=== PATIENT | female | born 1995 | race African-American/Black ===

== ENCOUNTER 2017-10-30 02:55 | Emergency (ER) | payer OTHER, SELFPAY ==
[2017-10-30] MEDS ORDERED: Ibuprofen 800 MG TAB ONE (03:22)
--- NOTE | 2017-10-30 08:57 | RAD ---
RIGHT WRIST 3 VIEWS: Date: 10/30/17 HISTORY: Trauma. Right wrist pain. FINDINGS/IMPRESSION: No fracture or dislocation is seen. If symptoms do not improve, a follow-up exam should be obtained in 7-10 days. POS: SHARRI
== END 2017-10-30 04:55 | disposition home or self-care (01) ==
LOC: ERS 02:55
DX: S50.11XA Contusion of right forearm, initial encounter (principal); W19.XXXA Unspecified fall, initial encounter

== ENCOUNTER 2018-05-25 16:38 | Emergency (ER) | payer SELFPAY ==
--- NOTE | 2018-05-25 17:58 | RAD ---
RADIOGRAPH RIGHT FOOT THREE VIEWS: History: 22-year-old female with traumatic right foot pain after fall. Comparison: None. FINDINGS: Visible only on the lateral view there is a small fragment abutting a small defect at the proximal do rsum of the navicular bone, involving the talonavicular joint surface, with minimal displacement. It is uncertain whether this is an acute fracture or chronic finding. The rest of the bones are normal. No dislocation. IMPRESSION: 1. Small osseous fragment associated with small osseous defect at the dorsum of the navicular bone. U ncertain whether this is an acute chip fracture or chronic. Recommend correlation with presence or ab sence of point tenderness in this particular location. 2. The rest of the foot is normal. POS: JIN
== END 2018-05-25 17:24 | disposition home or self-care (01) ==
LOC: ERS 16:38
DX: S92.251A Displaced fracture of navicular [scaphoid] of right foot, initial encounter for closed fracture (principal); X50.9XXA Other and unspecified overexertion or strenuous movements or postures, initial encounter

== ENCOUNTER 2018-07-19 18:52 | Emergency (ER) | payer OTHER, SELFPAY ==
[2018-07-19] MEDS ORDERED: Adacel (T-DAP) 0.5 ML SYRINGE ONE (19:12)
[2018-07-19] MEDS ORDERED: Bacitracin Zinc 1 Packet ONE (19:28)
--- NOTE | 2018-07-20 09:31 | RAD ---
TWO VIEWS OF THE RIGHT THIRD FINGER 07/19/18 COMPARISON: None. HISTORY: Laceration. FINDINGS: No fracture, dislocation, or radiopaque foreign body. There is soft tissue irregularity involving the volar aspect of the third finger distally, likely on the basis of laceration. IMPRESSION: No fracture/dislocation or radiopaque foreign body. POS: JULIANA
== END 2018-07-19 19:44 | disposition home or self-care (01) ==
LOC: ERS 18:52
DX: S61.212A Laceration without foreign body of right middle finger without damage to nail, initial encounter (principal); W25.XXXA Contact with sharp glass, initial encounter
CPT/HCPCS: 90471; 90715

== ENCOUNTER 2018-07-31 19:09 | Emergency (ER) | payer OTHER ==
[2018-07-31] MEDS ORDERED: Ketorolac Tromethamine 30 MG/ML VIAL ONE (19:31)
[2018-07-31] MEDS ORDERED: diphenhydrAMINE 50 MG/ML VIAL ONE (19:31)
[2018-07-31] MEDS ORDERED: Metoclopramide HCl 10 MG/2 ML VIAL ONE (19:31)
--- NOTE | 2018-07-31 19:46 | RAD ---
FFrontal and lateral imaging of the thoracic spine: 07/31/2018 COMPARISON: None HISTORY: Fall, trauma, pain FINDINGS: Thoracic pedicles appear intact on frontal imaging. Lateral imaging demonstrates normal una tebral body height and alignment. No displaced fracture. IMPRESSION: No acute findings.
--- NOTE | 2018-07-31 19:47 | RAD ---
F3 views of the lumbar spine: 07/31/2018 Comparison: None HISTORY: Fall, pain FINDINGS: Lumbar pedicles are intact. No fracture or dislocation. Lumbar vertebral body height and al ignment is normal. IMPRESSION: No acute findings.
--- NOTE | 2018-07-31 20:00 | CT ---
HEAD CT WITHOUT CONTRAST: 07/31/18 HISTORY: Fall. Hit back of head. Posttraumatic pain. COMPARISON: None. FINDINGS: No parenchymal hemorrhage. No extra-axial hematoma. No midline shift. Basilar cisterns are patent. Br ain volume, age appropriate. Cortical goldberg-white matter differentiation is preserved. No hydrocephalus. Adequate aeration of the sinuses and mastoid air cells. Calvarium is intact. IMPRESSION: No intracranial posttraumatic sequela. POS: PPP
--- NOTE | 2018-07-31 20:00 | CT ---
FCervical spine CT without contrast: 07/31/2018 COMPARISON: None HISTORY: Injury, trauma, pain TECHNIQUE: Axial CT imaging at 2.5 mm intervals through the cervical spine with coronal and sagittal reformatted imaging FINDINGS: The imaged lung apices are unremarkable. The craniocervical junction, the atlantoaxial interspace, and the cervicothoracic junction demonstrat e no acute findings. There is straightening of the normal cervical lordosis. No prevertebral soft tis kyle swelling. Cervical vertebral body height and alignment appears normal. Occipital condyles, dens, and C1 ring are intact. No acute fracture or dislocation. IMPRESSION: No acute findings.
[2018-07-31] MEDS ORDERED: Ketorolac Tromethamine 60 MG/2 ML VIAL ONE (20:19)
== END 2018-07-31 20:35 | disposition home or self-care (01) ==
LOC: ERS 19:09
DX: S09.90XA Unspecified injury of head, initial encounter (principal); S33.5XXA Sprain of ligaments of lumbar spine, initial encounter; S23.3XXA Sprain of ligaments of thoracic spine, initial encounter; W01.10XA Fall on same level from slipping, tripping and stumbling with subsequent striking against unspecified object, initial encounter
CPT/HCPCS: 70450; 72070; 72100; 72125; 96372; J1200; J1885; J2765

== ENCOUNTER 2019-01-27 20:04 | Emergency (ER) | payer OTHER, SELFPAY ==
[2019-01-27] MEDS ORDERED: Metoclopramide HCl 10 MG/2 ML VIAL ONE (22:01)
[2019-01-27] MEDS ORDERED: diphenhydrAMINE 50 MG/ML VIAL ONE (22:01)
[2019-01-27] MEDS ORDERED: Ketorolac Tromethamine 30 MG/ML VIAL ONE (22:01)
== END 2019-01-28 00:20 | disposition home or self-care (01) ==
LOC: ERS 20:04
DX: R51 Headache (principal); F17.290 Nicotine dependence, other tobacco product, uncomplicated
CPT/HCPCS: 96365; 96375; J1200; J1885; J2765

== ENCOUNTER 2020-01-03 17:18 | Emergency (ER) | payer OTHER | END 2020-01-03 17:55 | disposition left against medical advice (07) | LOC: ERS 17:18 | DX: Z53.21 Procedure and treatment not carried out due to patient leaving prior to being seen by health care provider (principal) ==

== ENCOUNTER 2022-12-17 21:53 | Emergency (ER) | payer BC, OTHER ==
[2022-12-17 22:38] LABS: #Basophils 0.1 thou/uL (0.0-0.2); #Eosinphils 0.5 thou/uL (0.0-0.7); #Monocytes 0.6 thou/uL (0.11-0.59); #Neutrophils 4.9 thou/uL (1.40-6.50); %Basophils 0.9 % (0.0-1.0); %Eosinophils 4.9 % (0.0-10.0); %Lymphocytes 36.7 % (21.0-51.0); %Monocytes 6.2 % (0.0-10.0); %Neutrophils 51.1 % (42.0-75.0); Hematocrit 38.1 % (36.0-47.0); Hemoglobin 12.1 g/dL (12.0-16.0); Mean Corpuscular HGB CONC 31.8 g/dL (32.0-36.0); Mean Corpuscular Hemoglobin 27.3 pg (27.0-31.0); Mean Platelet Volume 11.9 fL (7.4-10.4); Platelet Count 150 10x3/uL (130-400); RBC Distribution Width 14.5 % (11.5-14.5); Red Blood Cell (RBC) Count 4.43 mill/uL (4.20-5.40); White Blood Cell (WBC) Count 9.6 10x3/uL (4.8-10.8)
[2022-12-17 23:03] LABS: ALT (SGPT) 9 U/L (8-55); AST (SGOT) 24 U/L (5-34); Albumin 3.7 g/dL (3.5-5.0); Alkaline Phosphatase 53 U/L (40-110); Anion Gap 10 mmol/L (10-20); BUN (Urea Nitrogen) 16 mg/dL (7.0-18.7); Bilirubin, Total 0.3 mg/dL (0.2-1.2); Calc. Creatinine Clearance 0 mL/min (70-130); Calcium 8.7 mg/dL (7.8-10.44); Carbon Dioxide 19 mmol/L (22-29); Chloride 111 mmol/L (98-107); Estimated GFR 96; Globulin 3.4 g/dL (2.4-3.5); Glucose 120 mg/dL (70-105); Potassium 4.3 mmol/L (3.5-5.1); Protein, Total 7.1 g/dL (6.0-8.3); Sodium 136 mmol/L (136-145)
[2022-12-17 23:12] LABS: BHCG - Serum Negative (NEGATIVE); Pregs Control Background? CLEAR/WHITE (CLR/WHITE); Pregs Control Bar Appear? YES (CONTROL BAR)
[2022-12-18] MEDS ORDERED: levETIRAcetam 500 MG/5 ML VIAL ONE (00:16)
[2022-12-18] MEDS ORDERED: Ketorolac Tromethamine 30 MG/ML VIAL ONE (00:16)
== END 2022-12-18 01:20 | disposition home or self-care (01) ==
LOC: ERS 21:53
DX: R56.9 Unspecified convulsions (principal)
CPT/HCPCS: 70450; 80053; 84703; 85025; 96374; 96375; J1885; J1953

== ENCOUNTER 2023-01-02 18:01 | Emergency (ER) | payer BC | END 2023-01-02 19:50 | disposition home or self-care (01) | LOC: ERS 18:01 | DX: K08.89 Other specified disorders of teeth and supporting structures (principal); F17.290 Nicotine dependence, other tobacco product, uncomplicated | CPT/HCPCS: 99282 ==